=== PATIENT | female | born 1960 | race African-American/Black ===

== ENCOUNTER 2018-03-09 14:58 | Emergency (ER) | payer MEDICARE, MEDICAID ==
[2018-03-09 15:44] LABS: Hemoglobin 13.8 g/dL (12.0-16.0); Mean Corpuscular HGB CONC 33.9 g/dL (32.0-36.0); Mean Corpuscular Hemoglobin 32.4 pg (27.0-31.0); Mean Corpuscular Volume 95.8 fL (78.0-98.0); Mean Platelet Volume 6.2 fL (7.4-10.4); Platelet Count 415 thou/uL (130-400); RBC Distribution Width 16.4 % (11.5-14.5); Red Blood Cell (RBC) Count 4.26 mill/uL (4.20-5.40)
--- NOTE | 2018-03-09 15:55 | RAD ---
PORTABLE AP CHEST: Date: 03/09/18 HISTORY: Chest pain. COMPARISON: 02/27/13. FINDINGS: Cardiaca silhouette and pulmonary vasculature are within normal limits for the portable technique of the study. Left hemidiaphragm is elevated and there is gaseous distention of a loop of bowel beneath the left hemidiaphragm. There is mild atelectasis at the left lung base. The lungs are otherwise manoj r. Degenerative changes seen in the spine with mild right convex curvature. IMPRESSION: 1. No acute cardiopulmonary process. 2. Elevation of left hemidiaphragm with mild volume loss at the left lung base. POS: [facility]
[2018-03-09 16:06] LABS: ALT (SGPT) 21 U/L (8-55); AST (SGOT) 16 U/L (5-34); Albumin 4.2 g/dL (3.5-5.0); Alkaline Phosphatase 77 U/L (40-150); Anion Gap 16 mmol/L (10-20); BUN (Urea Nitrogen) 14 mg/dL (9.8-20.1); Bilirubin, Total 0.3 mg/dL (0.2-1.2); CK (CPK) 33 U/L (29-168); Calc. Creatinine Clearance 0 mL/min (70-130); Calcium 9.8 mg/dL (7.8-10.44); Carbon Dioxide 24 mmol/L (22-29); Chloride 102 mmol/L (98-107); Estimated GFR-MDRD Greater than 90; Globulin 2.9 g/dL (2.4-3.5); Glucose 143 mg/dL (70-105); Protein, Total 7.1 g/dL (6.0-8.3); Sodium 138 mmol/L (136-145)
[2018-03-09 16:10] LABS: CKMB 0.6 ng/mL (0-6.6); Troponin I Less than 0.010 ng/mL (< 0.028)
[2018-03-09 16:17] LABS: Anisocytosis SLIGHT = 6-15 cells (100X) (0-5/hpf); Lymphocytes 6 % (21-51); MDiff Complete? YES; Monocytes 5 % (0-10); Neutrophil 89 % (42-75); PLT Morphology Comment Appears Adequate
== END 2018-03-09 17:36 | disposition home or self-care (01) ==
LOC: ERS 14:58
DX: J20.9 Acute bronchitis, unspecified (principal); I10 Essential (primary) hypertension; R07.89 Other chest pain; F32.9 Major depressive disorder, single episode, unspecified; Z87.891 Personal history of nicotine dependence
CPT/HCPCS: 71045; 80053; 82553; 84484; 85025; 93005; 94760

== ENCOUNTER 2018-05-19 12:56 | Emergency (ER) | payer MEDICARE, MEDICAID ==
[2018-05-19 13:40] LABS: #Lymphocytes 1.3 thou/uL (1.20-3.40); #Monocytes 0.4 thou/uL (0.11-0.59); #Neutrophils 11.3 thou/uL (1.40-6.50); %Basophils 0.2 % (0.0-1.0); %Eosinophils 0.3 % (0.0-10.0); %Lymphocytes 10.3 % (21.0-51.0); %Monocytes 2.8 % (0.0-10.0); %Neutrophils 86.4 % (42.0-75.0); Hemoglobin 13.9 g/dL (12.0-16.0); Mean Corpuscular HGB CONC 32.4 g/dL (32.0-36.0); Mean Corpuscular Hemoglobin 30.4 pg (27.0-31.0); Mean Corpuscular Volume 93.7 fL (78.0-98.0); Mean Platelet Volume 6.6 fL (7.4-10.4); Platelet Count 426 thou/uL (130-400); RBC Distribution Width 16.2 % (11.5-14.5); Red Blood Cell (RBC) Count 4.57 mill/uL (4.20-5.40); White Blood Cell (WBC) Count 13.1 thou/uL (4.8-10.8)
[2018-05-19 14:08] LABS: ALT (SGPT) 12 U/L (8-55); AST (SGOT) 13 U/L (5-34); Albumin 4.1 g/dL (3.5-5.0); Alkaline Phosphatase 93 U/L (40-150); Anion Gap 13 mmol/L (10-20); BUN (Urea Nitrogen) 12 mg/dL (9.8-20.1); Bilirubin, Total 0.2 mg/dL (0.2-1.2); CK (CPK) 45 U/L (29-168); Calc. Creatinine Clearance 0 mL/min (70-130); Calcium 9.8 mg/dL (7.8-10.44); Carbon Dioxide 23 mmol/L (22-29); Chloride 107 mmol/L (98-107); Estimated GFR-MDRD Greater than 90; Glucose 131 mg/dL (70-105); Lipase 17 U/L (8-78); Potassium 3.8 mmol/L (3.5-5.1); Protein, Total 7.1 g/dL (6.0-8.3); Sodium 139 mmol/L (136-145)
[2018-05-19 14:11] LABS: CKMB 0.7 ng/mL (0-6.6); Troponin I Less than 0.010 ng/mL (< 0.028)
--- NOTE | 2018-05-19 14:35 | RAD ---
CHEST TWO VIEWS: 05/19/18 HISTORY: Dyspnea. COMPARISON: 12/27/17. FINDINGS: The cardiac silhouette is unremarkable. Pulmonary vasculature upper limits of normal. Mediastinum is midline. No confluent air space consolidation, pneumothorax, or pleural fluid are apparent. IMPRESSION: No active cardiopulmonary abnormalities are demonstrated. POS: [facility]
--- NOTE | 2018-05-23 13:25 | EKG ---
Test Reason : CP Blood Pressure : / mmHG Vent. Rate : 089 BPM Atrial Rate : 089 BPM P-R Int : 126 ms QRS Dur : 078 ms QT Int : 370 ms P-R-T Axes : 027 041 043 degrees QTc Int : 450 ms Normal sinus rhythm Normal ECG Confirmed by DEE DEE WOLF ([id number]), city editor LUÍS LÓPEZ ([id number] on 05/23/2018 1:24:24 PM Referred By: Confirmed By:DEE DEE WOLF
== END 2018-05-19 14:27 | disposition home or self-care (01) ==
LOC: ERS 12:56
DX: J44.1 Chronic obstructive pulmonary disease with (acute) exacerbation (principal); I25.2 Old myocardial infarction; I10 Essential (primary) hypertension; Z87.891 Personal history of nicotine dependence; Z79.899 Other long term (current) drug therapy
CPT/HCPCS: 36415; 71046; 80053; 82553; 83690; 84484; 85025; 93005; 94640; 94760; J7620

== ENCOUNTER 2018-05-21 12:42 | Outpatient (CLI) | payer MEDICARE, MEDICAID ==
--- NOTE | 2018-05-21 16:34 | RAD ---
SINUSES 3 VIEWS: Date: 05/21/18 HISTORY: Acute sinusitis. FINDINGS/IMPRESSION: The paranasal sinuses demonstrate no evidence of air fluid levels. The paranasal sinuses appear well aerated. The patient is edentulous. POS: [facility]
== END 2018-05-21 12:43 | disposition home or self-care (01) ==
LOC: BICRAD 12:42
PROVIDERS: ATTEND Internal Medicine
DX: J44.1 Chronic obstructive pulmonary disease with (acute) exacerbation (principal); J01.90 Acute sinusitis, unspecified
CPT/HCPCS: 70220

== ENCOUNTER 2018-06-08 07:58 | Emergency (ER) | payer MEDICARE, MEDICAID ==
--- NOTE | 2018-06-08 09:27 | RAD ---
RIGHT WRIST 3 VIEWS: HISTORY: A 57-year-old female with a history of right wrist pain. FINDINGS: No evidence for acute fracture or dislocation. Marked negative ulnar variance. There is some associ ated arthrosis of the distal radial ulnar joint. 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 No fracture or dislocation. Marked negative ulnar variance . POS: [facility]
== END 2018-06-08 09:20 | disposition home or self-care (01) ==
LOC: ERS 07:58
DX: S63.501A Unspecified sprain of right wrist, initial encounter (principal); M19.90 Unspecified osteoarthritis, unspecified site; I10 Essential (primary) hypertension; I25.2 Old myocardial infarction; J45.909 Unspecified asthma, uncomplicated; F32.9 Major depressive disorder, single episode, unspecified; Z79.899 Other long term (current) drug therapy; Z79.891 Long term (current) use of opiate analgesic; Z87.891 Personal history of nicotine dependence; X50.1XXA Overexertion from prolonged static or awkward postures, initial encounter

== ENCOUNTER 2018-10-16 11:56 | Inpatient (IN) | payer MEDICARE, MEDICAID ==
[2018-10-16] MEDS ORDERED: methylPREDNISolone Sod Succ/PF 125 MG/2 ML VIAL ONE (12:27)
[2018-10-16 12:42] LABS: #Lymphocytes 1.2 thou/uL (1.20-3.40); #Monocytes 0.5 thou/uL (0.11-0.59); #Neutrophils 9.6 thou/uL (1.40-6.50); %Basophils 0.2 % (0.0-1.0); %Eosinophils 0.1 % (0.0-10.0); %Lymphocytes 10.9 % (21.0-51.0); %Monocytes 3.9 % (0.0-10.0); %Neutrophils 84.9 % (42.0-75.0); Hemoglobin 14.5 g/dL (12.0-16.0); Mean Corpuscular HGB CONC 31.5 g/dL (32.0-36.0); Mean Corpuscular Hemoglobin 30.1 pg (27.0-31.0); Mean Corpuscular Volume 95.6 fL (78.0-98.0); Mean Platelet Volume 7.5 fL (7.4-10.4); Platelet Count 320 thou/uL (130-400); RBC Distribution Width 15.4 % (11.5-14.5); White Blood Cell (WBC) Count 11.3 thou/uL (4.8-10.8)
[2018-10-16 13:08] LABS: ALT (SGPT) 14 U/L (8-55); AST (SGOT) 17 U/L (5-34); Alkaline Phosphatase 97 U/L (40-150); Anion Gap 14 mmol/L (10-20); BUN (Urea Nitrogen) 12 mg/dL (9.8-20.1); Bilirubin, Total 0.2 mg/dL (0.2-1.2); Calc. Creatinine Clearance 0 mL/min (70-130); Carbon Dioxide 28 mmol/L (22-29); Chloride 105 mmol/L (98-107); Estimated GFR-MDRD Greater than 90; Globulin 2.6 g/dL (2.4-3.5); Glucose 132 mg/dL (70-105); Potassium 3.8 mmol/L (3.5-5.1); Protein, Total 6.6 g/dL (6.0-8.3); Sodium 143 mmol/L (136-145)
--- NOTE | 2018-10-16 13:19 | RAD ---
2 VIEW CHEST: Date: 10/16/18 INDICATION: Cough. COMPARISON: 05/19/18. FINDINGS: Mildly elevated left hemidiaphragm is stable. The lungs appear clear. No infiltrates seen. Heart size is normal. IMPRESSION: No acute process. POS: [facility]
[2018-10-16] MEDS ORDERED: Ondansetron ODT 4 MG TAB SL PRN (22:11)
[2018-10-16] MEDS ORDERED: Acetaminophen 325 MG TAB PO PRN (22:11)
[2018-10-16] MEDS ORDERED: Ondansetron PF 4 MG/2 ML Vial IVP PRN (22:11)
[2018-10-16] MEDS ORDERED: Sodium Chloride 0.9% 10 ML ONE (22:49)
[2018-10-17] MEDS: methylPREDNISolone Sod Succ 40 MG VIAL IVP SCH ×4 (00:40→17:15)
[2018-10-17 02:42] VITALS: BMI 34.8
[2018-10-17 06:32] LABS: #Lymphocytes 0.9 thou/uL (1.20-3.40); #Monocytes 0.4 thou/uL (0.11-0.59); #Neutrophils 6.4 thou/uL (1.40-6.50); %Basophils 0.3 % (0.0-1.0); %Eosinophils 0.4 % (0.0-10.0); %Lymphocytes 11.1 % (21.0-51.0); %Monocytes 5.3 % (0.0-10.0); Hemoglobin 13.2 g/dL (12.0-16.0); Mean Corpuscular HGB CONC 31.7 g/dL (32.0-36.0); Mean Corpuscular Hemoglobin 30.6 pg (27.0-31.0); Mean Corpuscular Volume 96.3 fL (78.0-98.0); Mean Platelet Volume 7.3 fL (7.4-10.4); Platelet Count 316 thou/uL (130-400); RBC Distribution Width 15.3 % (11.5-14.5); White Blood Cell (WBC) Count 7.7 thou/uL (4.8-10.8)
[2018-10-17 06:49] LABS: Anion Gap 13 mmol/L (10-20); BUN (Urea Nitrogen) 14 mg/dL (9.8-20.1); Calc. Creatinine Clearance 125 mL/min (70-130); Calcium 9.1 mg/dL (7.8-10.44); Carbon Dioxide 28 mmol/L (22-29); Chloride 103 mmol/L (98-107); Estimated GFR-MDRD Greater than 90; Glucose 135 mg/dL (70-105); Sodium 140 mmol/L (136-145)
--- NOTE | 2018-10-17 07:08 | HP ---
PRIMARY CARE DOCTOR: Armand Quick MD CODE STATUS: Full code. TIME OF EVALUATION: 11 p.m. CHIEF COMPLAINT: Cough. HISTORY OF PRESENT ILLNESS: This 58-year-old female patient with a past medical history of COPD, hypertension, asthma, coronary artery disease, and lupus, came to the hospital after having severe gradually worsening shortness of breath associated with wheezing and cough. Symptoms have been present for the past 4 days with no clear triggers, no alleviating factors. Symptoms get worse when the patient ambulates. REVIEW OF SYSTEMS: CONSTITUTIONAL: No fever or chills. The patient reported generalized weakness. RESPIRATORY: The patient has cough, scant sputum production, shortness of breath, wheezing. CARDIOVASCULAR: No chest pain, palpitation. GASTROINTESTINAL: No nausea. No vomiting, diarrhea, or abdominal pain. 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 GENITOURINARY: No burning on urination. EXTREMITIES: No leg swelling. All other systems were reviewed and negative except for the findings mentioned above. PAST MEDICAL HISTORY: As mentioned in the HPI. FAMILY HISTORY: Reviewed, noncontributory for current presentation. PSYCH HISTORY: Depression. SOCIAL HISTORY: No drugs, no tobacco, no alcohol. The patient lives at home. KNOWN ALLERGIES: Sulfa. REPORTED MEDICATIONS: 1. Metoprolol. 2. Levaquin. 3. Amlodipine. 4. Sertraline. 5. Prednisone. 6. Carisoprodol. 7. Celecoxib. 8. Folic acid. 9. Albuterol. 10. Tramadol. PHYSICAL EXAMINATION: VITAL SIGNS: On presentation, blood pressure 135/93 with heart rate 90, respiratory rate was 26, temperature 98.3. Pain was 9/10. Oxygen saturation 96% on room air. GENERAL APPEARANCE: The patient is alert, oriented, in mild distress due to respiratory symptoms. HEENT: Eyes, normal conjunctivae. Moist oral mucosa. Anicteric. No JVD. RESPIRATORY: Bilateral air entry is decreased. The patient has bilateral wheezing, very audible. Symmetric expansion. CARDIOVASCULAR: Normal rate, regular rhythm. No murmurs, no gallops. No edema. ABDOMEN: Soft. Normal bowel sounds. MUSCULOSKELETAL: Baseline range of motion and strength. No tenderness. SKIN: Warm, intact. No pallor. No rash. No redness. Peripheral pulses are present. Capillary refill seems to be intact. NEURO: No evidence of any new focal weakness. Baseline speech. Cranial nerves seem to be intact. PSYCH: The patient is in good mood. No anxiety. Optimal judgment. DIAGNOSTIC DATA: Chest x-ray was reviewed. The patient has no acute process. LABORATORY DATA: Labs were reviewed. The patient has white count of 11.3, hemoglobin 14.5, MCV 95.6, platelet count 320, neutrophils 84.9. Sodium 143, potassium 3.8, chloride 105, carbon dioxide 28, anion gap 14, BUN 12, creatinine 0.77, GFR greater than 90, glucose 132, lactic acid 1.3, calcium 9.0, total bilirubin 0.2, AST 17, ALT 14, alkaline phosphatase 97, serum total protein 6.6, albumin 4.0, globulin 2.6, albumin-globulin ratio is 1.5. ASSESSMENT AND PLAN: The patient will be placed in the hospital with following medical problems: 1. Acute chronic obstructive pulmonary disease exacerbation, very severe. The patient needed nebs, steroids, and antibiotics. Reconcile home medications. 2. History of coronary artery disease. This problem is chronic, seems to be stable. Reconcile home medications, adjust as needed. 3. Uncontrolled blood pressure. The patient presented with systolic blood pressure of 145. Reconcile home medications, we will adjust treatment as needed. DVT prophylaxis Job ID: [id number] [facility]
[2018-10-17] MEDS: traMADol HCl 50 MG TAB PO PRN (08:56)
[2018-10-17] MEDS: Enoxaparin Sodium 40 MG/0.4 ML SYRINGE SC SCH (08:58)
[2018-10-17] MEDS ORDERED: Sodium Chloride 0.9% 10 ML ONE (10:14)
--- NOTE | 2018-10-17 14:37 | PRG ---
DATE OF SERVICE: 10/17/2018 SUBJECTIVE: The patient was seen and examined at bedside. She feels significantly better. She is wheezing significantly less today than yesterday. OBJECTIVE: VITAL SIGNS: Blood pressure is 129/68, pulse is 85, respiratory rate is 18, O2 saturation is 91% on room air. Her respiratory rates at 7:27 today was up to 24, now it is down to 18, temperature is 98.2. HEENT: Head is atraumatic and normocephalic. Eyes are PERRLA. Sclerae are nonicteric. Oral mucosa is moist. NECK: Supple. LUNGS: Bilateral wheezing and rales present in front and back. HEART: S1 and S2, somewhat distant. No S3. No S4. ABDOMEN: Soft, nontender, obese, nondistended. EXTREMITIES: No clubbing, cyanosis, or edema. NEUROLOGICAL: She is alert and oriented x4. There is no any sensory or motor deficits present. Cranial nerves are intact. LABORATORY DATA: Labs showed a normal CBC, chemistry within normal limits except for glucose, which is 135. Microbiology 2 blood cultures, no growth. IMPRESSION: 1. Acute exacerbation of chronic obstructive pulmonary disease with some improvement, on DuoNeb, levofloxacin IV and IV Solu-Medrol. We will add Pulmicort inhalations 0.5 mg twice daily. 2. History of coronary artery disease, chronic, stable. 3. Uncontrolled blood pressure, improved. PLAN: Plan is to continue current regimen. Start her on inhalation with Pulmicort twice daily and we will re-evaluate her status tomorrow morning. If she is significantly improved to the point that we can switch her to oral prednisone, which she might be able to go home tomorrow. Job ID: [id number]
[2018-10-17] MEDS: Budesonide 0.5 MG/2 ML NEB INH SCH (19:29)
[2018-10-18] MEDS: methylPREDNISolone Sod Succ 40 MG VIAL IVP SCH ×5 (00:28→23:32)
[2018-10-18] MEDS ORDERED: Sodium Chloride 0.9% 10 ML ONE ×4 (00:29→23:27)
[2018-10-18] MEDS: traMADol HCl 50 MG TAB PO PRN ×4 (01:42→23:31)
[2018-10-18] MEDS: Budesonide 0.5 MG/2 ML NEB INH SCH ×2 (06:48→18:32)
[2018-10-18] MEDS ORDERED: CELECOXIB 200 MG PO SCH (09:00)
[2018-10-18] MEDS ORDERED: Metoprolol Tartrate 25 MG TAB PO SCH (09:00)
[2018-10-18] MEDS: Enoxaparin Sodium 40 MG/0.4 ML SYRINGE SC SCH (09:19)
[2018-10-18] MEDS: Folic Acid 1 MG TAB PO SCH (09:40)
[2018-10-18] MEDS: Amlodipine 5 MG TAB PO SCH (09:40)
[2018-10-18] MEDS: Montelukast Sodium 10 mg Tablet PO SCH (09:41)
[2018-10-18] MEDS: Phenergan/Codeine 10-6.25mg/5ml UDCUP PO PRN ×3 (12:06→23:40)
--- NOTE | 2018-10-18 13:15 | PRG ---
DATE OF SERVICE: 10/18/2018 SUBJECTIVE: The patient is seen and examined at the bedside. She is still coughing a lot and wheezing quite a bit. She is asking me whether she is going to go home today. OBJECTIVE: VITAL SIGNS: Blood pressure is 142/87, pulse is 99, temperature is 98.5, respiratory rate 22, and pulse oximetry is 91% on room air. HEENT: Head is atraumatic and normocephalic. Eyes are PERRLA. Sclerae are nonicteric. Oral mucosa is moist. LUNGS: Bilateral rales and wheezing present, more in the front than in the back. HEART: S1 and S2 normal. No S3. No S4. No any murmur. ABDOMEN: Soft, nontender, obese. EXTREMITIES: No clubbing, cyanosis, or edema. NEUROLOGICAL: She is alert and oriented x4. There is no any motor deficit. LABORATORY DATA: None today. IMPRESSION: 1. Exacerbation of chronic obstructive pulmonary disease with most likely significant component of asthma exacerbation. 2. History of coronary artery disease, chronic, stable. 3. Uncontrolled blood pressure, improved. DISCUSSION: The patient is still wheezing a lot. She is started on her montelukast today along with her other medications. We will continue her Solu-Medrol every 6 hours IV. She was started on Pulmicort twice a day yesterday. She will continue DuoNeb every 4 hours and we encouraged her to ambulate and we encouraged her to drink more fluids orally. Job ID: [id number]
[2018-10-19] MEDS: methylPREDNISolone Sod Succ 40 MG VIAL IVP SCH ×3 (05:36→17:22)
[2018-10-19] MEDS: Budesonide 0.5 MG/2 ML NEB INH SCH ×2 (07:17→19:32)
[2018-10-19] MEDS: Enoxaparin Sodium 40 MG/0.4 ML SYRINGE SC SCH (08:25)
[2018-10-19] MEDS: CeleCOXIB 100 MG CAP PO SCH (08:26)
[2018-10-19] MEDS: Folic Acid 1 MG TAB PO SCH (08:27)
[2018-10-19] MEDS: Amlodipine 5 MG TAB PO SCH (08:27)
[2018-10-19] MEDS: traMADol HCl 50 MG TAB PO PRN ×2 (08:30→21:34)
[2018-10-19] MEDS: Montelukast Sodium 10 mg Tablet PO SCH (08:31)
--- NOTE | 2018-10-19 11:12 | PRG ---
DATE OF SERVICE: 10/19/2018 SUBJECTIVE: The patient is seen examined at the bedside. She noticed decreased wheezing. OBJECTIVE: VITAL SIGNS: Blood pressure is 153/74, pulse is 75, respiratory rate is 18, O2 saturation 95% on room air. HEENT: Head is atraumatic and normocephalic. Eyes are PERRLA. Sclerae nonicteric. Oral mucosa is moist. NECK: Supple. LUNGS: Bilateral wheezes, expiratory present, but improved since yesterday. HEART: S1 and S2 normal. No S3. No S4. No any murmur. ABDOMEN: Soft, nontender. Bowel sounds are present. No organomegaly. EXTREMITIES: No clubbing, cyanosis, or edema. NEUROLOGIC: She is alert and oriented x4. There is no any motor or sensory deficit present. Cranial nerves are intact. LABORATORY DATA: None today. Microbiology: Blood cultures negative at 48 hours. IMPRESSION: 1. Acute exacerbation of chronic obstructive pulmonary disease with most likely asthma exacerbation. 2. History of coronary artery disease, chronic, stable. 3. Uncontrolled blood pressure, improved. PLAN: Plan is to continue her current regimen. She is slowly improving. We started her on inhaled steroids and we will continue her DuoNeb and levofloxacin. She should be able to be discharged home in the next 24-48 hours. Job ID: [id number]
[2018-10-19] MEDS: Phenergan/Codeine 10-6.25mg/5ml UDCUP PO PRN ×2 (13:32→21:38)
[2018-10-19] MEDS ORDERED: Sodium Chloride 0.9% 10 ML ONE (13:33)
[2018-10-20] MEDS ORDERED: Aspirin 325 MG TAB ONE (00:12)
[2018-10-20] MEDS ORDERED: Sodium Chloride 0.9% 10 ML ONE (00:14)
[2018-10-20] MEDS: methylPREDNISolone Sod Succ 40 MG VIAL IVP SCH ×2 (00:16→06:11)
[2018-10-20] MEDS: Budesonide 0.5 MG/2 ML NEB INH SCH (07:16)
[2018-10-20] MEDS: CeleCOXIB 100 MG CAP PO SCH (08:21)
[2018-10-20] MEDS: Phenergan/Codeine 10-6.25mg/5ml UDCUP PO PRN (08:22)
[2018-10-20] MEDS: traMADol HCl 50 MG TAB PO PRN (08:26)
[2018-10-20] MEDS: Folic Acid 1 MG TAB PO SCH (08:27)
[2018-10-20] MEDS: Montelukast Sodium 10 mg Tablet PO SCH (08:27)
[2018-10-20] MEDS: Enoxaparin Sodium 40 MG/0.4 ML SYRINGE SC SCH (08:28)
[2018-10-20] MEDS: Amlodipine 5 MG TAB PO SCH (08:28)
[2018-10-20] MEDS ORDERED: Amlodipine 5 MG TAB PO SCH (11:45)
[2018-10-20 12:00] VITALS: TEMP 98.7
[2018-10-20 12:56] VITALS: BP 148/84
--- NOTE | 2018-10-20 23:21 | DIS ---
DATE OF ADMISSION: 10/16/2018 DATE OF DISCHARGE: 10/20/2018 SUBJECTIVE: The patient is seen and examined at the bedside. She is ready to be discharged home today. She is doing well. FINAL DIAGNOSES AT THE TIME OF DISCHARGE: 1. Acute exacerbation of chronic obstructive pulmonary disease. 2. Acute exacerbation of asthma. 3. History of coronary artery disease, chronic, stable. 4. Uncontrolled hypertension, improved with increased dose of her home medications. HOSPITAL COURSE: The patient is a 58-year-old -[place] female, who was admitted to the hospital with complaints of cough. Apparently, she has a history of COPD, asthma, hypertension, coronary artery disease, and lupus. She noticed gradual increase of shortness of breath associated with wheezing and cough in the patient were going on for several days prior to this hospitalization. At the time of emergency room visit, her white count was up to 11.3, hemoglobin 14.5, MCV was 95.6, platelet count 320. She had 84.9 neutrophils. Her electrolytes were within normal limits. Kidney function was within normal limits. Lactic acid was 1.3. The patient was started on IV steroids and IV antibiotics. She was admitted to the hospital. She improved on this regimen plus DuoNeb. Her blood pressure required increased dose of amlodipine to twice a day 5 mg. She is doing quite well. She still has some wheezes, but that significantly improved. Her blood pressure is 148/84, pulse is 80, respiratory rate is 20, and O2 saturation is 98% on room air. She was seen and examined before she was discharged. Her lungs have some rales and rhonchi with few wheezes, but that is kind of mild compared to what she was before at the time of admission. Heart, S1 and S2 are normal. Abdomen is soft and nontender. Extremities; no clubbing, cyanosis, or edema. DISPOSITION: She is discharged home in good condition. ACTIVITIES: As tolerated. DIET: Heart healthy. MEDICATIONS AT THE TIME OF DISCHARGE: She will stay on: 1. Prednisone 40 mg one once a day for 3 days, then 30 mg once a day for 3 days, then 20 mg once a day for 3 days, then she will stay on her baseline prednisone dose at 10 mg for her rheumatoid arthritis. 2. She is going to use DuoNeb q.4 hours p.r.n. as needed. 3. Amlodipine 5 mg twice a day. 4. Budesonide, Pulmicort in the form of inhaler 180 mcg twice a day two puffs. 5. Celebrex 200 mg once a day. 6. Folic acid 1 mg once a day. 7. She is going to take 500 mg levofloxacin tablet once a day today and tomorrow another one. She has this at home. 8. She will continue her montelukast 10 mg once a day. 9. She will take Mucinex DM. 10. She will continue her Zoloft 100 mg once a day and tramadol 50 mg q.8 hours p.r.n. as needed. FOLLOWUP: She will follow up with primary care physician in 1 week. For now, she is going to hold her methotrexate for a week. She was seen and examined before she was discharged. TIME SPENT: Discharge time is more than 30 minutes. Job ID: [id number]
== END 2018-10-20 13:21 | disposition home or self-care (01) | DRG 191 ==
LOC: ERS 11:56 → ERHOLD 16:30 → 3SE 21:46
PROVIDERS: ADMIT Internal Medicine; ATTEND Internal Medicine
DX: J44.1 Chronic obstructive pulmonary disease with (acute) exacerbation (principal); J45.901 Unspecified asthma with (acute) exacerbation; I10 Essential (primary) hypertension; I25.10 Atherosclerotic heart disease of native coronary artery without angina pectoris; M32.9 Systemic lupus erythematosus, unspecified; F32.9 Major depressive disorder, single episode, unspecified; Z88.2 Allergy status to sulfonamides; Z79.899 Other long term (current) drug therapy; Z79.52 Long term (current) use of systemic steroids; Z79.51 Long term (current) use of inhaled steroids; Z95.5 Presence of coronary angioplasty implant and graft
CPT/HCPCS: 36415; 71046; 80048; 80053; 83605; 85025; 87040; 94640; 96374; J1650; J1956; J2920; J2930; J7620; J7626; Q0162